=== PATIENT | female | born 1930 | race Caucasian/White ===

== ENCOUNTER 2016-09-13 11:44 | Emergency (ER) | payer MEDICARE ==
[~2016-09-13] VITALS: Ht 167.6 cm; Wt 60.0 kg
[~2016-09-13 11:44] MED LIST: ACET500C5 PO; CEPH-443 PO
[2016-09-13 11:52] VITALS: Ht 167.6 cm; Wt 60.0 kg
[2016-09-13] MEDS ORDERED: SOD CHLORIDE 0.9% 500 ML IV STA (12:04)
[2016-09-13 12:29] LABS: BASOPHIL # 0.1 10^3/ul (0.0-0.1); BASOPHILS % 0.6 % (0.0-2.0); EOSINOPHILS # 0.2 10^3/ul (0.0-0.5); EOSINOPHILS % 2.5 % (0.0-7.0); HEMATOCRIT 50.5 % (37.0-47.0); HEMOGLOBIN 16.4 g/dl (12.0-16.0); LYMPHOCYTES # 2.3 10^3/ul (0.8-2.9); LYMPHOCYTES % 28.7 % (15.0-51.0); MEAN CORPUSCULAR HEMOGLOBIN 31.4 pg (29.0-33.0); MEAN CORPUSCULAR HGB CONC 32.5 g/dl (32.0-37.0); MEAN CORPUSCULAR VOLUME 96.6 fl (82.0-101.0); MONOCYTE # 0.7 10^3/ul (0.3-0.9); MONOCYTES % 8.2 % (0.0-11.0); NEUTROPHIL # 4.7 10^3/ul (1.6-7.5); NEUTROPHILS % 59.7 % (39.0-77.0); PLATELET COUNT 236 10^3/UL (140-415); RED BLOOD COUNT 5.23 10^6/ul (4.20-5.40); RED CELL DISTRIBUTION WIDTH 14.8 % (11.5-14.5); WHITE BLOOD COUNT 7.9 10^3/ul (4.8-10.8)
[2016-09-13 12:41] LABS: INR 0.99; PARTIAL THROMBOPLASTIN TIME 30.8 Sec (25.0-35.0); PROTIME 13.1 Sec (12.2-14.2)
[2016-09-13 12:43] LABS: ANION GAP 18 (8-16); BLOOD UREA NITROGEN 25 mg/dl (7-20); CALCIUM 11.1 mg/dl (8.4-10.2); CARBON DIOXIDE 25 mmol/L (21-31); CHLORIDE 105 mmol/L (97-110); CREATININE 1.01 mg/dl (0.44-1.00); GLUCOSE 79 mg/dl (70-220); POTASSIUM 4.2 mmol/L (3.5-5.1); SODIUM 144 mmol/L (135-144)
[2016-09-13 12:47] LABS: ADD UMIC YES; UR ASCORBIC ACID 40 mg/dL (NEGATIVE); UR BILIRUBIN (Dip) NEGATIVE (NEGATIVE); UR BLOOD (Dip) NEGATIVE (NEGATIVE); UR CLARITY CLEAR (CLEAR); UR COLOR YELLOW (YELLOW); UR GLUCOSE (Dip) NEGATIVE (NEGATIVE); UR KETONES (Dip) NEGATIVE (NEGATIVE); UR LEUKOCYTE ESTERASE (Dip) 3+ Leu/ul (NEGATIVE); UR NITRITE (Dip) NEGATIVE (NEGATIVE); UR RBC 5 /HPF (0-5); UR SPECIFIC GRAVITY (Dip) 1.024 (1.003-1.030); UR TOTAL PROTEIN (Dip) NEGATIVE (NEGATIVE); UR UROBILINOGEN (Dip) NEGATIVE (NEGATIVE)
[2016-09-13 13:05] LABS: TROPONIN-I < 0.012 ng/ml (0.00-0.12)
--- NOTE | 2016-09-13 13:39 | RADRPT ---
PROCEDURE: Chest radiograph. CLINICAL INDICATION: Chest pain. TECHNIQUE: Single portable semiupright frontal view. COMPARISON: None relevant listed. FINDINGS: The lungs are clear. No pleural effusion or focal parenchymal opacity. The cardiomediastinal silhouette is normal. No suspicious bone lesion. Mild dextroconvex curvature of the mid thoracic spine. Surgical clips project over the left chest and left axilla. IMPRESSION: 1. No acute cardiopulmonary abnormality. 2. Chronic surgical changes involving the left chest wall. RPTAT: PP Physician Kristin Date Time Electronically viewed and signed by Physician Kristin on 09/13/2016 13:38 LG/
--- NOTE | 2016-09-13 14:09 | ERD ---
ER Documentation Chief Complaint Date/Time DATE: 09/13/16 TIME: 14:03 Chief Complaint SOB AND DIZZY X 2 DAYS HPI This is an 86-year-old female who presents to the emergency room for evaluation of shortness of breath and lightheadedness. The patient was sent by nursing staff. This patient is denying actual chest pain or shortness of breath at this time. When I evaluated her she had no complaints and denied being dizzy ROS All systems reviewed and are negative except as per history of present illness. Medications Home Meds Active Scripts Cephalexin* (Keflex*) 500 Mg Capsule, 500 MG PO BID for 7 Days, CAP Prov:ALEX,MARIAH C 11/16/15 Acetaminophen* (Tylophen*) 500 Mg Capsule, 1 CAP PO Q6H Y for PAIN AND OR ELEVATED TEMP, #20 CAP Prov:ALEX,MARIAH C 11/16/15 Allergies Allergies: Coded Allergies: No Known Allergy (Unverified , 11/16/15) PMhx/Soc Medical and Surgical Hx: pt denies Medical Hx, pt denies Surgical Hx Hx Alcohol Use: No Hx Substance Use: No Hx Tobacco Use: No Smoking Status: Unknown if ever smoked Physical Exam Vitals Vital Signs Date Time Temp Pulse Resp B/P Pulse Ox O2 Delivery O2 Flow Rate FiO2 09/13/16 12:28 Nasal Cannula 09/13/16 11:52 98.2 65 18 120/59 96 Physical Exam INITIAL VITAL SIGNS: Reviewed by me GENERAL: The patient is well developed and appropriate for usual state of health in no apparent distress HEENT: Pupils equal, round, and reactive to light. EOMI. There is no scleral icterus. NECK: C-spine is soft and supple, there is no meningismus. There is no cervical lymphadenopathy. LUNGS: Clear to auscultation bilaterally. There are no rales, wheezes or rhonchi. HEART: Regular rate and rhythm, no murmurs, clicks, rubs or gallops. ABDOMEN: Soft, non-tender, non-distended. There are bowel sounds in all four quadrants. No rebound or guarding. EXTREMITIES: There is no peripheral cyanosis or edema. No focal swelling or erythema. NEUROLOGICAL: The patient moves all four extremities with 5/5 strength. Cranial nerves II - XII are intact. Normal gait. Alert and oriented SKIN: There is no apparent rash or petechiae. HEME/LYMPHATIC: There is no evidence of excessive bruising or lymphedema. PSYCHIATRIC: The patient does not appear anxious or depressed. Result Diagram: 09/13/16 1215 09/13/16 1215 Results 24 hrs Laboratory Tests Test 09/13/16 12:15 White Blood Count 7.910^3/ul Red Blood Count 5.2310^6/ul Hemoglobin 16.4g/dl Hematocrit 50.5% Mean Corpuscular Volume 96.6fl Mean Corpuscular Hemoglobin 31.4pg Mean Corpuscular Hemoglobin Concent 32.5g/dl Red Cell Distribution Width 14.8% Platelet Count 38478^3/UL Mean Platelet Volume 10.0fl Neutrophils % 59.7% Lymphocytes % 28.7% Monocytes % 8.2% Eosinophils % 2.5% Basophils % 0.6% Nucleated Red Blood Cells % 0.0/100WBC Neutrophils # 4.710^3/ul Lymphocytes # 2.310^3/ul Monocytes # 0.710^3/ul Eosinophils # 0.210^3/ul Basophils # 0.110^3/ul Nucleated Red Blood Cells # 0.010^3/ul Prothrombin Time 13.1Sec Prothrombin Time Ratio 1.0 INR International Normalized Ratio 0.99 Activated Partial Thromboplast Time 30.8Sec Sodium Level 144mmol/L Potassium Level 4.2mmol/L Chloride Level 105mmol/L Carbon Dioxide Level 25mmol/L Anion Gap 18 Blood Urea Nitrogen 25mg/dl Creatinine 1.01mg/dl Glucose Level 79mg/dl Calcium Level 11.1mg/dl Troponin I < 0.012ng/ml Current Medications Medications (Trade) Dose Ordered Sig/Monie Route PRN Reason Start Time Stop Time Status Last Admin Dose Admin Sodium Chloride (NS) 500 ml @ 500 mls/hr Q1H STAT IV 09/13/16 12:04 09/13/16 13:03 DC 09/13/16 12:19 Procedures/MDM EKG: Rate/Rhythm: [Normal Sinus Rhythm] QRS, ST, T-waves: [No changes consistent w/ acute ischemia] Impression: [No evidence of ischemia or arrhythmia] Chest X-ray 1V Interpreted by me: Soft Tissue: No acute abnormalities Bones: No acute abnormalities Mediastinum/Cardiac Silhouette/Lungs: [No acute abnormalities] This 86-year-old female presents to the emergency room for evaluation of lightheadedness. A history was obtained from [facility] is that this patient was lightheaded. This patient was denying any chest pain, shortness of breath, dizziness. I did evaluate this patient she was nontoxic appearing, hemodynamically stable and in no acute distress. EKG was obtained which is nonischemic. Chest x-ray is clear. Troponin is negative and this patient states she is feeling good at this time. I have contacted this patient's son and spoken to him and he is in agreement that this patient can be discharged at this time [facility] to the [facility]. The patient is agreeable advised that she can return at any point for reevaluation if she were to become short of breath or dizzy. Departure Diagnosis: Primary Impression: General weakness Condition: Stable LEXI HERNANDEZ DO Sep 13, 2016 14:09
[2016-09-13 15:23] VITALS: BP 116/62; PULSE 67; RESP 18; TEMP 98.2
== END 2016-09-13 15:23 | disposition home or self-care (01) ==
LOC: FTE 11:44
DX: R53.1 Weakness (principal)
CPT/HCPCS: 36415; 71010; 80048; 81001; 84484; 85025; 85610; 85730; 93005; 99285; J7040